=== PATIENT | male | born 1965 | race Caucasian/White ===

== ENCOUNTER 2021-01-15 07:35 | Emergency (ER) | payer BC, OTHER ==
[~2021-01-15] VITALS: Ht 177.8 cm; Wt 113.6 kg
[2021-01-15 09:30] LABS: BASO % 0.6 % (0.0-1.0); EOS % 0.9 % (0.0-3.0); HEMATOCRIT 45.2 % (42.0-52.0); HEMOGLOBIN 15.5 g/dl (13.5-17.5); LYMPH # 1.1 10^3/uL (1.5-5.0); LYMPH % 24.1 % (24.0-44.0); MEAN CORPUSCULAR HEMOGLOBIN 30.9 pg (27.0-33.0); MEAN CORPUSCULAR HGB CONC 34.3 g/dl (32.0-36.5); MONO # 0.4 10^3/uL (0.0-0.8); MONO % 7.5 % (2.0-8.0); NEUTROPHILS # 3.1 10^3/uL (1.5-8.5); PLATELET COUNT, AUTOMATED 168 10^3/uL (150-450); RED BLOOD COUNT 5.02 10^6/uL (4.30-6.10); WHITE BLOOD COUNT 4.7 10^3/uL (4.0-10.0)
[2021-01-15 10:18] LABS: BLOOD UREA NITROGEN 23 MG/DL (7-18); CALCIUM LEVEL 9.2 MG/DL (8.5-10.1); CARBON DIOXIDE LEVEL 21 MEQ/L (21-32); CHLORIDE LEVEL 103 MEQ/L (98-107); CK-MB VALUE MASS 1.5 NG/ML (<3.6); CPK CREATINE PHOSPHOKINASE 186 U/L (39-308); CREATININE FOR GFR 1.16 MG/DL (0.70-1.30); GLOMERULAR FILTRATION RATE > 60.0 (>56); GLUCOSE, FASTING 176 MG/DL (70-100); MB/CK RELATIVE INDEX 0.81 (< OR =4); POTASSIUM SERUM 3.8 MEQ/L (3.5-5.1); SODIUM LEVEL 139 MEQ/L (136-145); TROPONIN I < 0.02 NG/ML (< 0.10)
[2021-01-15] MEDS ORDERED: ISOVUE-370 76% 100ML VIAL As Ordered ONE (10:22)
[2021-01-15] MEDS ORDERED: MEMA10TA19 PO (10:23)
[2021-01-15] MEDS ORDERED: PRAV40TA2 PO (10:23)
[2021-01-15] MEDS ORDERED: DONE10TA90 PO (10:23)
[2021-01-15] MEDS ORDERED: IRBE300T7 PO (10:23)
[2021-01-15] MEDS ORDERED: AMLO1TAB25 PO (10:23)
[2021-01-15] MEDS ORDERED: ATIV1TAB10 PO (10:23)
[2021-01-15] MEDS ORDERED: BYST10TA2 (10:23)
[2021-01-15] MEDS ORDERED: TEST200I14 (10:23)
[2021-01-15] MEDS ORDERED: SILD100T (10:23)
[2021-01-15] MEDS ORDERED: CHLO125TA PO (10:23)
[2021-01-15] MEDS ORDERED: FLUO20CA22 PO (10:23)
--- NOTE | 2021-01-15 10:54 | REP ---
INDICATION: TIA COMPARISON: 01/25/2018 TECHNIQUE: Axial noncontrast images from the skull base to the thoracic inlet with coronal reformations. This CT examination was performed using the following dose reduction techniques: Automated exposure control, adjustment of mA and/or kv according to the patient's size, and use of iterative reconstruction technique. FINDINGS: Atrophy with periventricular leukomalacia and microvascular ischemic changes are appreciated along with chronic low-density changes to the bilateral temporal lobes (left greater than right) similar to prior examination. The ventricles and sulci are symmetric. Adams-white differentiation is maintained. There is no evidence for acute intracranial hemorrhage, mass/mass effect, pathology or infarction. No extra-axial fluid collection. Calvarium is intact. Paranasal sinuses and mastoid air cells are clear. IMPRESSION: Atrophy and microvascular ischemic changes. Stable bilateral temporal lobe low-density changes. No acute intracranial hemorrhage, infarction, or mass/mass effect. <Electronically signed by Ashvin Wilder > 01/15/21 [id number]
--- NOTE | 2021-01-15 10:58 | REP ---
INDICATION: TIA. COMPARISON: None. TECHNIQUE: CT contrast dose: 100 ml of intravenous Isovue 370. Axial contrast-enhanced images were obtained from the skull base to the vertex with coronal reformations using 100 cc Isovue 370 intravenous contrast material. Maximal intensity projection and multiplanar re-formation images along with 3-D rendered imaging of the arterial vasculature. FINDINGS: The [id number] and visualized vertebrobasilar system appear to be within normal limits. Vasculature to the bilateral hemispheres appear symmetric. No obvious arteriovenous malformation or aneurysm detected. Remainder of the examination appears essentially normal. IMPRESSION: Essentially normal CT angiography of the head. No obvious arteriovenous malformation or aneurysm. Vasculature to the bilateral hemispheres and posterior fossa appear symmetric. <Electronically signed by Ashvin Wilder > 01/15/21 [id number]
--- NOTE | 2021-01-15 11:00 | REP ---
INDICATION: TIA. COMPARISON: None. TECHNIQUE: Axial contrast-enhanced images were obtained from the thoracic inlet to the skull base with coronal and sagittal reformations using 100 cc Isovue 370 intravenous contrast material. Maximal intensity projection and multiplanar re-formation images along with 3-D rendered imaging of the arterial vasculature. This CT examination was performed using the following dose reduction techniques: Automated exposure control, adjustment of mA and/or kv according to the patient's size, and the use of iterative reconstruction technique. FINDINGS: The common carotid arteries, carotid bulbs and visualized portions of the external and the internal carotid arteries are symmetric and normal. The vertebral arteries are patent and normal. There are no atherosclerotic lesions, areas of significant stenosis or occlusion identified. No obvious vascular abnormality noted.. IMPRESSION: Normal CT angiography of the neck <Electronically signed by Ashvin Wilder > 01/15/21 [id number]
[2021-01-15 12:42] VITALS: BP 119/62
--- NOTE | 2021-01-15 21:37 | ECGEPIP ---
[facility] - ED Test Date: 2021-01-15 Pat Name: MORRO SILVEIRA Department: Room: - Gender: Male [employer] Loader: SCOTT : 1965 Requested By: Santhosh Hernandez Order Number: [id number] Reading MD: Santhosh Parish Measurements Intervals Decker Rate: 72 P: 42 WV: 148 QRS: -12 QRSD: 100 T: 39 QT: 402 QTc: 440 Interpretive Statements Normal sinus rhythm Minimal voltage criteria for LVH, may be normal variant ( R in aVL ) Nonspecific T wave abnormality NO PRIORS FOR COMPARISON Electronically Signed on 01-15-2021 21:37:23 EDT by Santhosh Parish
== END 2021-01-15 12:44 | disposition home or self-care (01) ==
LOC: M ED 07:35
DX: R42 Dizziness and giddiness (principal)
CPT/HCPCS: 70450; 70496; 70498; 80048; 82550; 82553; 84484; 85025; 93005; 93041; 94760; 99285; Q9967